=== PATIENT | male | born 1950 | race Caucasian/White ===

== ENCOUNTER 2024-03-03 04:27 | Inpatient (IN) | payer OTHER ==
[2024-03-03 04:59] VITALS: BMI 15.6
[2024-03-03] MEDS ORDERED: NICOTINE POLACRILEX 4 MG GUM BUC PRN (05:53)
[2024-03-03] MEDS ORDERED: BENZONATATE 200 MG CAPSULE PO PRN (05:53)
[2024-03-03] MEDS ORDERED: IBUPROFEN 400 MG TABLET (FP) PO PRN (05:53)
[2024-03-03] MEDS ORDERED: guaiFENesin 600 MG TABLET.ER (FP) PO PRN (05:53)
[2024-03-03] MEDS ORDERED: BISMUTH SUBSALICYLATE 524 MG/30 ML PO PRN (05:53)
[2024-03-03] MEDS ORDERED: MAGNESIUM HYDROX 2400MG/30ML ORAL SUSPENSION 30 ML CUP PO PRN (05:53)
[2024-03-03] MEDS ORDERED: BENZOCAINE/MENTHOL (CHLORASEPTIC ) LOZENGE MM PRN (05:53)
[2024-03-03] MEDS ORDERED: MAG HYDROX/AL HYDROX/SIMETH 30 ML UNIT-DOSE CUP PO PRN (05:53)
[2024-03-03] MEDS ORDERED: DICYCLOMINE HCL 10 MG CAPSULE PO PRN (05:53)
[2024-03-03] MEDS ORDERED: POLYETHYLENE GLYCOL (HEALTHYLAX) 3350 17 GM PACKET PO PRN (05:53)
[2024-03-03] MEDS ORDERED: LOPERAMIDE HCL 2 MG CAPSULE PO PRN (05:53)
[2024-03-03] MEDS ORDERED: NALOXONE (NARCAN) HCL 4 MG/0.1 ML SPRAY NS PRN (05:53)
[2024-03-03] MEDS ORDERED: ONDANSETRON *ODT* 4 MG TABLET SL PRN (05:53)
[2024-03-03] MEDS ORDERED: hydrOXYzine PAMOATE 25 MG CAPSULE (FP) PO ONE (07:15)
[2024-03-03] MEDS: hydrOXYzine PAMOATE 25 MG CAPSULE (FP) PO ONE (07:19)
[2024-03-03] MEDS ORDERED: diazePAM 5 MG TABLET PO PRN (09:23)
[2024-03-03] MEDS: diazePAM 5 MG TABLET PO SCH (10:14)
[2024-03-03] MEDS: BUPRENORPHINE/NALOXONE 8 MG/2 MG FILM PACKET SL SCH (10:14)
[2024-03-03] MEDS: PRENATAL VITAMINS W/ FOLIC ACID TABLET (FP) PO SCH (10:14)
[2024-03-03] MEDS: levETIRAcetam 500 MG TABLET (FP) PO SCH (10:14)
[2024-03-03] MEDS: NICOTINE 21 MG/24 HOURS TOPICAL PATCH TD SCH (10:16)
[2024-03-03] MEDS: FLU VACCINE (FLULAVAL) PF 45 MCG/0.5 ML SYRINGE 2024-2025 IM ONE (10:21)
[2024-03-03 11:48] LABS: HEMATOCRIT 36.4 % (35.4-49); HEMOGLOBIN 12.2 GM/dL (11.7-16.9); MCH 28.2 pg (25.7-33.7); MCHC 33.5 g/dl (32.0-35.9); MEAN CELL VOLUME 84.1 fl (80-96); MEAN PLT VOLUME 7.6 fl (7.5-11.1); PLATELET COUNT 235 10^3/uL (134-434); RBC 4.33 M/mm3 (4.00-5.60); WHITE BLOOD COUNT 8.4 K/mm3 (4.0-10.0)
[2024-03-03 12:12] LABS: POTASSIUM 4.1 mmol/L (3.5-5.1)
[2024-03-03 12:18] LABS: CALCIUM 9.6 mg/dL (8.5-10.1)
[2024-03-03 12:19] LABS: ALBUMIN 3.8 g/dl (3.4-5.0); BLOOD UREA NITROGEN 27.7 mg/dL (7-18)
[2024-03-03 12:23] LABS: CREATININE 1.1 mg/dL (0.55-1.3)
[2024-03-03 12:24] LABS: BILIRUBIN,TOTAL 0.8 mg/dL (0.2-1); TOT PROT 6.8 g/dl (6.4-8.2)
[2024-03-03] MEDS: metoPROLOL SUCCINATE 25 MG TAB.SR.24H (FP) PO SCH (14:19)
[2024-03-03] MEDS: FAMOTIDINE 20 MG TABLET PO SCH (15:29)
[2024-03-03] MEDS: ACETAMINOPHEN 325 MG TABLET (FP) PO PRN (17:31)
[2024-03-03] MEDS: MELATONIN 5 MG TABLETS PO SCH (22:22)
[2024-03-03] MEDS: THIAMINE 100 MG TABLET PO SCH (22:22)
[2024-03-03] MEDS: ATORVASTATIN CA 20 MG TABLET (FP) PO SCH (22:22)
[2024-03-04] MEDS: GABAPENTIN 100 MG CAPSULE PO SCH (13:24)
[2024-03-05] MEDS: diazePAM 5 MG TABLET PO SCH (05:52)
[2024-03-06] MEDS: diazePAM 5 MG TABLET PO SCH (06:04)
[2024-03-06] MEDS: IBUPROFEN 600 MG TABLET (FP) PO PRN (17:24)
[2024-03-06] MEDS: SUVOREXANT 10 MG TABLET PO PRN (21:56)
[2024-03-07] MEDS: diazePAM 5 MG TABLET PO ONE (06:28)
[2024-03-07 11:14] VITALS: BP 111/69; PULSE 82; RESP 18; TEMP 98.6
== END 2024-03-07 11:05 | disposition home or self-care (01) | DRG 897 ==
LOC: YASAS 04:27 → Y6N 07:12
PROVIDERS: ADMIT Allergy & Immunology; ATTEND Surgery
PROC: HZ2ZZZZ Detoxification Services for Substance Abuse Treatment (ICD-10-PCS; principal; 2024-03-03)
DX: F13.230 Sedative, hypnotic or anxiolytic dependence with withdrawal, uncomplicated (principal); F11.20 Opioid dependence, uncomplicated; F19.282 Other psychoactive substance dependence with psychoactive substance-induced sleep disorder; F19.280 Other psychoactive substance dependence with psychoactive substance-induced anxiety disorder; F17.210 Nicotine dependence, cigarettes, uncomplicated; F19.24 Other psychoactive substance dependence with psychoactive substance-induced mood disorder; E78.2 Mixed hyperlipidemia; I10 Essential (primary) hypertension; Z88.0 Allergy status to penicillin
CPT/HCPCS: 36415; 80053; 80305; 85027; 86780; 93005; 93010; 99283-25

== ENCOUNTER 2024-03-24 12:37 | Inpatient (IN) | payer OTHER ==
[2024-03-24 14:01] VITALS: BMI 16.7
[2024-03-24] MEDS ORDERED: IBUPROFEN 400 MG TABLET (FP) PO PRN (14:47)
[2024-03-24] MEDS ORDERED: DICYCLOMINE HCL 10 MG CAPSULE PO PRN (14:47)
[2024-03-24] MEDS ORDERED: BENZONATATE 200 MG CAPSULE PO PRN (14:47)
[2024-03-24] MEDS ORDERED: MAGNESIUM HYDROX 2400MG/30ML ORAL SUSPENSION 30 ML CUP PO PRN (14:47)
[2024-03-24] MEDS ORDERED: ONDANSETRON *ODT* 4 MG TABLET SL PRN (14:47)
[2024-03-24] MEDS ORDERED: POLYETHYLENE GLYCOL (HEALTHYLAX) 3350 17 GM PACKET PO PRN (14:47)
[2024-03-24] MEDS ORDERED: BISMUTH SUBSALICYLATE 524 MG/30 ML PO PRN (14:47)
[2024-03-24] MEDS ORDERED: NICOTINE POLACRILEX 4 MG GUM BUC PRN (14:47)
[2024-03-24] MEDS ORDERED: IBUPROFEN 600 MG TABLET (FP) PO PRN (14:47)
[2024-03-24] MEDS ORDERED: ACETAMINOPHEN 325 MG TABLET (FP) PO PRN (14:47)
[2024-03-24] MEDS ORDERED: guaiFENesin 600 MG TABLET.ER (FP) PO PRN (14:47)
[2024-03-24] MEDS ORDERED: BENZOCAINE/MENTHOL (CHLORASEPTIC ) LOZENGE MM PRN (14:47)
[2024-03-24] MEDS ORDERED: MAG HYDROX/AL HYDROX/SIMETH 30 ML UNIT-DOSE CUP PO PRN (14:47)
[2024-03-24] MEDS ORDERED: NALOXONE (NARCAN) HCL 4 MG/0.1 ML SPRAY NS PRN (14:47)
[2024-03-24] MEDS ORDERED: CARVEDILOL 6.25 MG TABLET (FP) PO ONE (15:15)
[2024-03-24] MEDS ORDERED: diazePAM 5 MG TABLET ONE (18:00)
[2024-03-24] MEDS: diazePAM 5 MG TABLET PO SCH (18:05)
[2024-03-24] MEDS: NICOTINE 21 MG/24 HOURS TOPICAL PATCH TD SCH (18:39)
[2024-03-24] MEDS: CARVEDILOL 6.25 MG TABLET (FP) PO ONE (18:52)
[2024-03-24] MEDS ORDERED: BUPRENORPHINE/NALOXONE 8 MG/2 MG FILM PACKET SL SCH (22:00)
[2024-03-24] MEDS: GABAPENTIN 100 MG CAPSULE PO SCH (22:17)
[2024-03-24] MEDS: MIRTAZAPINE 15 MG TABLET (FP) PO SCH (22:17)
[2024-03-24] MEDS: ATORVASTATIN CA 20 MG TABLET (FP) PO SCH (22:17)
[2024-03-24] MEDS: levETIRAcetam 500 MG TABLET (FP) PO SCH (22:17)
[2024-03-24] MEDS: MELATONIN 5 MG TABLETS PO SCH (22:17)
[2024-03-24] MEDS: THIAMINE 100 MG TABLET PO SCH (22:18)
[2024-03-25] MEDS: metoPROLOL SUCCINATE 25 MG TAB.SR.24H (FP) PO SCH (10:34)
[2024-03-25] MEDS: PRENATAL VITAMINS W/ FOLIC ACID TABLET (FP) PO SCH (10:36)
[2024-03-26] MEDS: diazePAM 5 MG TABLET PO SCH (06:22)
[2024-03-27] MEDS: hydrOXYzine PAMOATE 25 MG CAPSULE (FP) PO PRN (01:28)
[2024-03-27] MEDS: METHOCARBAMOL 500 MG TABLET PO PRN (01:28)
[2024-03-27] MEDS: diazePAM 5 MG TABLET PO SCH (05:37)
[2024-03-27] MEDS: diazePAM 5 MG TABLET PO PRN (09:38)
[2024-03-27] MEDS: LOPERAMIDE HCL 2 MG CAPSULE PO PRN (09:39)
[2024-03-28] MEDS: diazePAM 5 MG TABLET PO ONE (06:00)
[2024-03-28] MEDS: NALOXONE (NYS OPIOID OVERDOSE PROGRAM) 4 MG/0.1 ML SPRAY NS SCH (08:45)
[2024-03-28] MEDS: BUPRENORPHINE/NALOXONE 8 MG/2 MG FILM PACKET SL ONE (16:35)
[2024-03-29 06:08] VITALS: RESP 16
[2024-03-29] MEDS: BUPRENORPHINE/NALOXONE 8 MG/2 MG FILM PACKET SL SCH (06:11)
[2024-03-29 10:47] VITALS: BP 122/68; PULSE 67; TEMP 97.8
== END 2024-03-29 12:05 | disposition home or self-care (01) | DRG 897 ==
LOC: YASAS 12:37 → Y3N 16:51
PROVIDERS: ADMIT Allergy & Immunology; ATTEND Surgery
PROC: HZ2ZZZZ Detoxification Services for Substance Abuse Treatment (ICD-10-PCS; principal; 2024-03-24)
DX: F13.230 Sedative, hypnotic or anxiolytic dependence with withdrawal, uncomplicated (principal); F17.213 Nicotine dependence, cigarettes, with withdrawal; F19.982 Other psychoactive substance use, unspecified with psychoactive substance-induced sleep disorder; F19.980 Other psychoactive substance use, unspecified with psychoactive substance-induced anxiety disorder; F19.94 Other psychoactive substance use, unspecified with psychoactive substance-induced mood disorder; I10 Essential (primary) hypertension; E78.5 Hyperlipidemia, unspecified; K21.9 Gastro-esophageal reflux disease without esophagitis; G40.909 Epilepsy, unspecified, not intractable, without status epilepticus; Z88.0 Allergy status to penicillin